=== PATIENT | male | born 1935 | race Caucasian/White ===

== ENCOUNTER → 2017-12-26 | Outpatient (CLI) | payer OTHER, BC ==
[~2017-12-26] MED LIST: DOXA4TAB2 PO; FINA5TAB PO; LISI-729 PO; MULTTAB58 PO; TYLOTC500 PO
[2017-12-26 17:35] LABS: BASO % 0.7 %; BASO ABS # 0.04 K/uL (0-0.2); EOS % 4.2 %; EOS ABS # 0.24 K/uL (0-0.5); HEMATOCRIT 38.8 % (42-52); HEMOGLOBIN 13.1 g/dL (14.0-18.0); IG# 0.03 K/uL (0.00-0.02); LYMPH % 23.7 %; LYMPH ABS # 1.34 K/uL (1.2-3.4); MEAN CELL VOLUME 96.8 fL (80-100); MEAN CORPUSCULAR HEMOGLOBIN 32.7 pg (25-34); MEAN CORPUSCULAR HGB CONC 33.8 g/dl (32-36); MEAN PLATELET VOLUME 9.9 fL (7.4-10.4); MONO % 13.3 %; MONO ABS # 0.75 K/uL (0.11-0.59); NEUT % 57.6 %; NEUT ABS # 3.25 K/uL (1.4-6.5); PLATELET COUNT 160 K/uL (130-400); RED CELL DISTRIBUTION WIDTH CV 13.4 % (11.5-14.5); WHITE BLOOD COUNT 5.65 K/uL (4.8-10.8)
[2017-12-26 17:42] LABS: INR 0.9 (0.9-1.1)
[2017-12-26 17:54] LABS: ALBUMIN 3.8 gm/dl (3.4-5.0); ALT/SGPT 21 U/L (12-78); BLOOD UREA NITROGEN 17 mg/dl (7-18); CARBON DIOXIDE 25 mmol/L (21-32); CREATININE 1.11 mg/dl (0.60-1.40); GLUCOSE 95 mg/dl (70-99); POTASSIUM 4.1 mmol/L (3.5-5.1); SODIUM 141 mmol/L (136-145)
[2017-12-26 17:57] LABS: ALKALINE PHOSPHATASE 54 U/L (45-117); AST/SGOT 18 U/L (15-37); TOTAL PROTEIN 7.1 gm/dl (6.4-8.2)
== END | disposition home or self-care (01) ==
LOC: C.LAB 16:42
PROVIDERS: ATTEND Family Medicine
DX: R21 Rash and other nonspecific skin eruption (principal)